=== PATIENT | female | born 1975 | race Caucasian/White ===

== ENCOUNTER 2016-07-01 10:01 | Emergency (ER) | payer OTHER ==
[~2016-07-01] VITALS: Ht 165.1 cm; Wt 58.1 kg
[2016-07-01] MEDS ORDERED: ONDANSETRON 4 MG TAB.RAPDIS ONE (10:22)
--- NOTE | 2016-07-01 10:25 | NUR ---
BIB SELF, CC: DYRURIA SINCE THIS MORNING WITH SOME NAUSEA, PATIENT IS ABLE TO AMBULATE TO BED, NO OTHER SIGNIFICANT CLINICAL PRESENTATION, PLACED ON MONITOR, URINE REQUESTED, MD AT BEDSIDE, WILL CONTINUE TO MONITOR CLOSELY.
[2016-07-01] MEDS ORDERED: ONDANSETRON 4 MG TAB.RAPDIS SL ONE (10:30)
--- NOTE | 2016-07-01 10:36 | NUR ---
URINE SAMPLE COLLECTED SENT TO LAB
[2016-07-01 11:08] LABS: APPEARANCE,URINE Turbid (CLEAR); BILIRUBIN,URINE Negative (NEGATIVE); BLOOD, URINE Large Ery/uL (NEGATIVE); COLOR,URINE Yellow (YELLOW); KETONES,URINE Negative (NEGATIVE); LEUKOCYTE ESTERASE ,URINE Moderate (NEGATIVE); NITRITE, URINE Negative (NEGATIVE); PH,URINE 5.5 (5.0-8.0); PROTEIN,URINE 30 mg/dl (NEGATIVE); UGLUCOSE Negative (NEGATIVE); UROBILINOGEN,URINE 0.2 EU/dL (0.2)
[2016-07-01 11:13] LABS: PREGNANCY TEST URINE QUAL NEGATIVE (NEGATIVE)
[2016-07-01] MEDS ORDERED: PHENAZOPYRIDINE HCL 200 MG TABLET ONE (11:14)
[2016-07-01] MEDS ORDERED: SULFAMETH/TRIMETH 800/160 MG 1 UDTAB TABLET PO ONE ×2 (11:15→11:30)
[2016-07-01 11:24] VITALS: BP 126/81
--- NOTE | 2016-07-01 11:25 | NUR ---
PT MEDICATED ORDERED
--- NOTE | 2016-07-01 11:25 | NUR ---
Patient discharged to home in stable condition. Written and verbal after care instructions given. Patient verbalizes understanding of instruction.
[2016-07-01] MEDS ORDERED: PHENAZOPYRIDINE HCL 200 MG TABLET PO ONE (11:30)
[2016-07-01 11:33] LABS: ADD URINE CULTURE YES; BACTERIA,URINE Many /HPF (None Seen); SQUAMOUS EPITHELIAL CELL,UR Rare /HPF (None Seen); WBC,URINE 21-50 /HPF (0-3)
== END 2016-07-01 11:27 | disposition home or self-care (01) ==
LOC: ER 10:03
DX: N30.00 Acute cystitis without hematuria (principal); Z88.6 Allergy status to analgesic agent
CPT/HCPCS: 81000-TC; 84703-TC; 87086-TC; 87186-TC; A4606; Q0162; Z7610

== ENCOUNTER 2016-07-13 18:54 | Emergency (ER) | payer OTHER ==
[~2016-07-13] VITALS: Ht 167.6 cm; Wt 59.0 kg
--- NOTE | 2016-07-13 19:02 | NUR ---
PT TO ER BED 09 C/O HEMATURIA AND DYSURIA X 2 WEEKS. HX OF RECURRENT UTI. GOWNED. ON MONITOR. STABLE VITALS. AWAITING MD OLIVARES.
--- NOTE | 2016-07-13 19:19 | NUR ---
CELINE KRISHNAN AT BEDSIDE FOR EVAL.
[2016-07-13 19:49] LABS: APPEARANCE,URINE Clear (CLEAR); BILIRUBIN,URINE SMALL (NEGATIVE); BLOOD, URINE Negative Ery/uL (NEGATIVE); COLOR,URINE Amber (YELLOW); KETONES,URINE Negative (NEGATIVE); LEUKOCYTE ESTERASE ,URINE Negative (NEGATIVE); NITRITE, URINE Positive (NEGATIVE); PROTEIN,URINE Trace mg/dl (NEGATIVE); UGLUCOSE 100 MG/DL mg/dL (NEGATIVE)
[2016-07-13] MEDS ORDERED: CEFTRIAXONE 1 G in IV D5W 50 ML IV ONE (20:00)
[2016-07-13] MEDS ORDERED: IV NS 0.9% 1,000 ML BAG IV ONE (20:00)
[2016-07-13] MEDS ORDERED: CEFTRIAXONE 1GM BAG (ER ONLY) 50 ML IV ONE (20:17)
[2016-07-13] MEDS ORDERED: ONDANSETRON HCL/PF 4 MG/2 ML VIAL ONE (20:17)
[2016-07-13] MEDS ORDERED: IV SET PRIMARY PUMP SET 1 EA INFUS.SET MC ONE (20:17)
[2016-07-13] MEDS ORDERED: IV SET PRIMARY 1 EA INFUS.SET MC ONE (20:17)
[2016-07-13] MEDS ORDERED: IV NS 0.9% 1,000 ML ONE (20:17)
[2016-07-13 20:20] LABS: BACTERIA,URINE Few /HPF (None Seen); MUCUS,URINE Many /LPF (None Seen); RBC,URINE 0-2 /HPF (0-2); SQUAMOUS EPITHELIAL CELL,UR Few /HPF (None Seen); WBC,URINE 0-2 /HPF (0-3)
[2016-07-13] MEDS ORDERED: MORPHINE SULFATE INJ 2 MG/ML DISP.SYRIN IV ONE (20:30)
[2016-07-13] MEDS ORDERED: ONDANSETRON HCL/PF 4 MG/2 ML VIAL IV ONE (20:30)
[2016-07-13] MEDS ORDERED: ACETAMINOPHEN ES 500 MG TABLET ONE (20:51)
[2016-07-13] MEDS ORDERED: ACETAMINOPHEN ES 500 MG TABLET PO ONE (21:00)
[2016-07-13 21:38] VITALS: BP 115/76
--- NOTE | 2016-07-13 21:38 | NUR ---
Patient discharged to home in stable condition. Written and verbal after care instructions given. Patient verbalizes understanding of instruction.IV removed. Catheter intact and site benign. Pressure and 4x4 applied to site. No bleeding noted.
== END 2016-07-13 21:39 | disposition home or self-care (01) ==
LOC: ER 18:58
DX: N30.01 Acute cystitis with hematuria (principal); Z88.6 Allergy status to analgesic agent
CPT/HCPCS: 81001; 87086; 96365; 96375; 99284; A4606; J0696; J2405; J7030; Z7610; 81000-TC

== ENCOUNTER 2016-08-04 20:34 | Emergency (ER) | payer OTHER ==
[~2016-08-04] VITALS: Ht 165.1 cm; Wt 56.7 kg
[2016-08-04 20:37] VITALS: BP 91/51
--- NOTE | 2016-08-04 20:45 | NUR ---
TO BED 4 AMBULATORY C/O URINARY FREQUENCY, PAIN AND BURNING UPON URINATION SINCE JUNE. PT WAS SEEN HER ON JULY 01 AND JULY 13 FOR THE SAME SYMPTOM. PT WAS GIVEN PRESCRIPTION OF ANTIBIOTIC BUT WITHOUT ANY RELIEF. ER FINAL TESTER TESS AT BEDSIDE TO EVAL PT WITH ORDERS RECEIVED. URINE SAMPLE COLLECTED AND SENT TO LAB.
[2016-08-04 20:58] LABS: APPEARANCE,URINE Clear (CLEAR); BILIRUBIN,URINE Negative (NEGATIVE); BLOOD, URINE Negative Ery/uL (NEGATIVE); COLOR,URINE Orange (YELLOW); KETONES,URINE Negative (NEGATIVE); LEUKOCYTE ESTERASE ,URINE Negative (NEGATIVE); NITRITE, URINE Positive (NEGATIVE); PROTEIN,URINE Negative (NEGATIVE); UGLUCOSE 100 MG/DL mg/dL (NEGATIVE); UROBILINOGEN,URINE 0.2 EU/dL (0.2)
[2016-08-04 21:06] LABS: BACTERIA,URINE Moderate /HPF (None Seen); RBC,URINE 0-2 /HPF (0-2); SQUAMOUS EPITHELIAL CELL,UR Moderate /HPF (None Seen); WBC,URINE 0-2 /HPF (0-3)
== END 2016-08-04 21:21 | disposition home or self-care (01) ==
LOC: ER 20:34
DX: N39.0 Urinary tract infection, site not specified (principal); Z88.6 Allergy status to analgesic agent
CPT/HCPCS: 81000-TC; 87086-TC; A4606; Z7610

== ENCOUNTER 2017-05-08 17:46 | Emergency (ER) | payer OTHER ==
[~2017-05-08] VITALS: Ht 165.1 cm; Wt 56.2 kg
--- NOTE | 2017-05-08 17:50 | NUR ---
BBRA 88 FROM HOME FOR SYNCOPAL EPISODE ON COUCH.HYPOTENSIVE PER RA. BS IN FIELD 56, AMP D50 GIVEN NAD NOTED, VSS, RESP EVEN AND UNLABORED, PT WAS PUT ON MONITOR AND HOSPITAL GOWN. WAITING FOR MD OLIVARES.
[2017-05-08] MEDS ORDERED: ONDANSETRON HCL/PF 4 MG/2 ML VIAL ONE (17:52)
[2017-05-08] MEDS ORDERED: MORPHINE SULFATE INJ 2 MG/ML DISP.SYRIN ONE (17:52)
[2017-05-08] MEDS ORDERED: IV NS 0.9% 1,000 ML BAG IV ONE ×2 (18:00→19:00)
[2017-05-08] MEDS ORDERED: MORPHINE SULFATE INJ 2 MG/ML DISP.SYRIN IV ONE (18:00)
[2017-05-08] MEDS ORDERED: ONDANSETRON HCL/PF 4 MG/2 ML VIAL IVP ONE (18:00)
[2017-05-08 18:11] LABS: BASOPHILS # (AUTO) 0.2 /CMM (0.0-0.2); BASOPHILS % (AUTO) 2.4 % (0.0-2.0); HEMATOCRIT 36 % (33-45); LYMPHOCYTES # (AUTO) 2.8 /CMM (0.8-4.8); MEAN CORPUSCULAR HGB CONC 34 g/dl (31.0-36.0); MEAN CORPUSCULAR VOLUME 83 fL (82-100); MONOCYTES # (AUTO) 0.3 /CMM (0.1-1.30); MONOCYTES % (AUTO) 4.8 % (2.0-12.0); NEUTROPHILS # (AUTO) 2.8 /CMM (1.8-8.9); NEUTROPHILS % (AUTO) 44.8 % (43.0-81.0); PLATELET COUNT (AUTO) 266 /CMM (150-450); RDW COEFFICIENT OF VARIATION 12.5 (11.5-15.0); RED BLOOD CELL COUNT(AUTO) 4.25 MIL/uL (4.0-5.2); WHITE BLOOD COUNT (AUTO) 6.4 K/uL (4.3-11.0)
--- NOTE | 2017-05-08 18:14 | NUR ---
URINE SENT TO LAB
--- NOTE | 2017-05-08 18:14 | NUR ---
PT TO CTSCAN
[2017-05-08 18:19] LABS: ALBUMIN 3.4 g/dL (3.4-5.0); BILIRUBIN,DIRECT 0.1 mg/dL (0.0-0.2); BILIRUBIN,TOTAL 0.3 mg/dL (0.2-1.0); CALCIUM, SERUM 8.3 mg/dL (8.5-10.1); CREATININE 0.8 mg/dL (0.6-1.3); POTASSIUM 3.2 mmol/L (3.5-5.1); TOTAL PROTEIN, SERUM 6.3 g/dL (6.4-8.2)
[2017-05-08 19:00] LABS: APPEARANCE,URINE Clear (CLEAR); BILIRUBIN,URINE Negative (NEGATIVE); BLOOD, URINE Negative Ery/uL (NEGATIVE); COLOR,URINE Orange (YELLOW); KETONES,URINE Negative (NEGATIVE); LEUKOCYTE ESTERASE ,URINE Negative (NEGATIVE); NITRITE, URINE Positive (NEGATIVE); PROTEIN,URINE 30 mg/dl (NEGATIVE); UGLUCOSE 500 MG/DL mg/dL (NEGATIVE)
[2017-05-08] MEDS ORDERED: POTASSIUM CHLORIDE 20 MEQ TAB.PRT.SR PO ONE ×2 (19:00→19:01)
[2017-05-08] MEDS ORDERED: CEFTRIAXONE 1GM BAG (ER ONLY) 50 ML IV ONE (20:05)
[2017-05-08 20:20] LABS: RBC,URINE 0-2 /HPF (0-2); WBC,URINE 0-2 /HPF (0-3)
[2017-05-08 20:23] LABS: BACTERIA,URINE Moderate /HPF (None Seen); MUCUS,URINE Few /LPF (None Seen); SQUAMOUS EPITHELIAL CELL,UR Moderate /HPF (None Seen)
[2017-05-08] MEDS ORDERED: CEFTRIAXONE 1 G in IV D5W 50 ML IV ONE (20:30)
[2017-05-08 20:55] VITALS: BP 121/83
--- NOTE | 2017-05-08 20:56 | NUR ---
Patient discharged to home in stable condition. Written and verbal after care instructions given. Patient verbalizes understanding of instruction.IV removed. Catheter intact and site benign. Pressure and 4x4 applied to site. No bleeding noted. Prescription given.
== END 2017-05-08 20:57 | disposition home or self-care (01) ==
LOC: ER 17:46
DX: N30.10 Interstitial cystitis (chronic) without hematuria (principal); E86.0 Dehydration; E87.6 Hypokalemia
CPT/HCPCS: 36415; 71045-TC; 80048-TC; 80076-TC; 81000-TC; 83690-TC; 84703-TC; 85025-TC; 87086-TC; A4606; J0696; J2270; J2405; J7030; J7060; Z7610

== ENCOUNTER 2017-05-17 00:25 | Emergency (ER) | payer OTHER ==
[~2017-05-17] VITALS: Ht 165.1 cm; Wt 56.7 kg
--- NOTE | 2017-05-17 00:45 | NUR ---
BB FRIEND FROM HOME C/O PAIN RIGHT FLANK/URETHRA PAIN 10/10 X2 DAYS. PT STATES SHE WAS DX WITH UTI RECENTLY AND WAS ACTIVELY TAKING ANTIBIOTICS TO TREAT HER UTI. PT STATES +N, -V/D. PT IS AAOX4.SKIN WNL. RESP EVEN AND UNLABORED. MILD S/S OF DISTRESS NOTED IN PT. PT GOWNED AND PLACED ON MONITOR. PT SAFETY AND COMFORT MEASURES IN PLACE. PT'S PARTNER BEDSIDE. CALL LIGHT PLACED WITHIN REACH. BEDSIDE FOR ELISE.
[2017-05-17] MEDS ORDERED: MORPHINE SULFATE INJ 2 MG/ML DISP.SYRIN IV ONE (01:00)
[2017-05-17] MEDS ORDERED: ONDANSETRON HCL/PF 4 MG/2 ML VIAL IVP ONE (01:00)
[2017-05-17] MEDS ORDERED: IV NS 0.9% 1,000 ML BAG IV ONE (01:00)
[2017-05-17] MEDS ORDERED: ONDANSETRON HCL/PF 4 MG/2 ML VIAL ONE (01:01)
[2017-05-17] MEDS ORDERED: MORPHINE SULFATE INJ 4 MG/ML DISP.SYRIN ONE (01:02)
[2017-05-17 01:04] LABS: BASOPHILS % (AUTO) 0.5 % (0.0-2.0); HEMATOCRIT 39 % (33-45); LYMPHOCYTES # (AUTO) 3.2 /CMM (0.8-4.8); LYMPHOCYTES % (AUTO) 33.1 % (20.0-44.0); MEAN CORPUSCULAR HGB CONC 33 g/dl (31.0-36.0); MEAN CORPUSCULAR VOLUME 85 fL (82-100); MONOCYTES # (AUTO) 0.5 /CMM (0.1-1.30); MONOCYTES % (AUTO) 5.4 % (2.0-12.0); NEUTROPHILS # (AUTO) 5.7 /CMM (1.8-8.9); PLATELET COUNT (AUTO) 288 /CMM (150-450); RDW COEFFICIENT OF VARIATION 13.2 (11.5-15.0); RED BLOOD CELL COUNT(AUTO) 4.61 MIL/uL (4.0-5.2); WHITE BLOOD COUNT (AUTO) 9.7 K/uL (4.3-11.0)
[2017-05-17 01:11] LABS: APPEARANCE,URINE CLEAR (CLEAR); BILIRUBIN,URINE NEGATIVE (NEGATIVE); BLOOD, URINE NEGATIVE Ery/uL (NEGATIVE); KETONES,URINE TRACE (NEGATIVE); LEUKOCYTE ESTERASE ,URINE NEGATIVE (NEGATIVE); NITRITE, URINE POSITIVE (NEGATIVE); PROTEIN,URINE NEGATIVE (NEGATIVE); UGLUCOSE NEGATIVE (NEGATIVE); UROBILINOGEN,URINE 0.2 EU/dL (0.2)
[2017-05-17 01:12] LABS: COLOR,URINE DARK YELLOW (YELLOW)
[2017-05-17 01:14] LABS: CALCIUM, SERUM 8.9 mg/dL (8.5-10.1); CREATININE 0.7 mg/dL (0.6-1.3); POTASSIUM 3.3 mmol/L (3.5-5.1)
[2017-05-17 01:17] LABS: BACTERIA,URINE Few /HPF (None Seen); RBC,URINE 0-2 /HPF (0-2); SQUAMOUS EPITHELIAL CELL,UR Moderate /HPF (None Seen); WBC,URINE 0-2 /HPF (0-3)
[2017-05-17 01:20] LABS: ALBUMIN 4.5 g/dL (3.4-5.0); BILIRUBIN,DIRECT 0.1 mg/dL (0.0-0.2); BILIRUBIN,TOTAL 0.4 mg/dL (0.2-1.0); TOTAL PROTEIN, SERUM 7.9 g/dL (6.4-8.2)
--- NOTE | 2017-05-17 02:15 | NUR ---
Patient is resting comfortably in bed with partner bedside. VSS. No S/S of distress noted in pt.
[2017-05-17 03:13] VITALS: BP 111/74
--- NOTE | 2017-05-17 03:13 | NUR ---
Patient discharged to home in stable condition. Written and verbal after care instructions along with RX given. Patient verbalizes understanding of instruction.IV removed. Catheter intact and site benign. Pressure and 4x4 applied to site. No bleeding noted. VSS upon discharge.
== END 2017-05-17 03:14 | disposition home or self-care (01) ==
LOC: ER 00:27
DX: N39.0 Urinary tract infection, site not specified (principal); K85.90 Acute pancreatitis without necrosis or infection, unspecified; Z88.6 Allergy status to analgesic agent; Z60.2 Problems related to living alone
CPT/HCPCS: 36415; 80048-TC; 80076-TC; 81000-TC; 83690-TC; 84703-TC; 85025-TC; 87086-TC; A4606; J2270; J2405; J7030; Z7610

== ENCOUNTER 2017-07-22 19:59 | Emergency (ER) | payer OTHER ==
[~2017-07-22] VITALS: Ht 177.8 cm; Wt 61.2 kg
--- NOTE | 2017-07-22 20:20 | NUR ---
to bed 8 c/o abdominal pain with n/v x4 hrs. pt states "I have a hx of pancreatitis and it feels like it". pt aaox4 no acute distress noted, resp even and unlabored. pending er md pederson.
[2017-07-22] MEDS ORDERED: PANTOPRAZOLE 40 MG VIAL ONE (20:44)
[2017-07-22] MEDS ORDERED: ONDANSETRON HCL/PF 4 MG/2 ML VIAL ONE ×2 (20:44→22:00)
[2017-07-22 20:48] LABS: BASOPHILS # (AUTO) 0.1 /CMM (0.0-0.2); BASOPHILS % (AUTO) 0.5 % (0.0-2.0); EOSINOPHILS % (AUTO) 0.6 % (0.0-6.0); HEMATOCRIT 39 % (33-45); HEMOGLOBIN 13.1 g/dL (11.5-14.8); LYMPHOCYTES # (AUTO) 2.1 /CMM (0.8-4.8); LYMPHOCYTES % (AUTO) 21.2 % (20.0-44.0); MEAN CORPUSCULAR HGB CONC 34 g/dl (31.0-36.0); MEAN CORPUSCULAR VOLUME 85 fL (82-100); MONOCYTES # (AUTO) 0.3 /CMM (0.1-1.30); MONOCYTES % (AUTO) 3.2 % (2.0-12.0); NEUTROPHILS # (AUTO) 7.5 /CMM (1.8-8.9); NEUTROPHILS % (AUTO) 74.5 % (43.0-81.0); PLATELET COUNT (AUTO) 299 /CMM (150-450); RDW COEFFICIENT OF VARIATION 12.7 (11.5-15.0); RED BLOOD CELL COUNT(AUTO) 4.63 MIL/uL (4.0-5.2); WHITE BLOOD COUNT (AUTO) 10.1 K/uL (4.3-11.0)
[2017-07-22] MEDS ORDERED: IV NS 0.9% 1,000 ML BAG IV ONE ×2 (21:00→22:00)
[2017-07-22] MEDS ORDERED: ONDANSETRON HCL/PF 4 MG/2 ML VIAL IVP ONE ×2 (21:00→22:00)
[2017-07-22] MEDS ORDERED: PANTOPRAZOLE 40 MG VIAL IV ONE (21:00)
[2017-07-22 21:01] LABS: ALBUMIN 3.9 g/dL (3.4-5.0); BILIRUBIN,DIRECT 0.1 mg/dL (0.0-0.2); BILIRUBIN,TOTAL 0.6 mg/dL (0.2-1.0); CALCIUM, SERUM 9.1 mg/dL (8.5-10.1); CREATININE 0.5 mg/dL (0.6-1.3); POTASSIUM 3.2 mmol/L (3.5-5.1); TOTAL PROTEIN, SERUM 7.3 g/dL (6.4-8.2)
[2017-07-22 21:03] LABS: INR 0.93 (0.85-1.15)
[2017-07-22 21:12] LABS: BILIRUBIN,URINE NEGATIVE (NEGATIVE); BLOOD, URINE NEGATIVE Ery/uL (NEGATIVE); COLOR,URINE YELLOW (YELLOW); KETONES,URINE NEGATIVE (NEGATIVE); LEUKOCYTE ESTERASE ,URINE NEGATIVE (NEGATIVE); NITRITE, URINE NEGATIVE (NEGATIVE); PH,URINE 8.5 (5.0-8.0); PROTEIN,URINE NEGATIVE (NEGATIVE); UGLUCOSE NEGATIVE (NEGATIVE); UROBILINOGEN,URINE 0.2 EU/dL (0.2)
[2017-07-22 21:13] LABS: APPEARANCE,URINE CLEAR (CLEAR)
--- NOTE | 2017-07-22 21:19 | NUR ---
pt transported to radiology for ct abd/pelvis.
[2017-07-22] MEDS ORDERED: MORPHINE SULFATE INJ 4 MG/ML DISP.SYRIN ONE (22:00)
[2017-07-22] MEDS ORDERED: MORPHINE SULFATE INJ 2 MG/ML DISP.SYRIN IV ONE (22:00)
--- NOTE | 2017-07-22 22:57 | NUR ---
IV removed. Catheter intact and site benign. Pressure and 4x4 applied to site. No bleeding noted. Patient discharged to home in stable condition. Written and verbal after care instructions given. Patient verbalizes understanding of instruction. ambulatory with a steady gait noted. pt family member at bedside to take pt home.
[2017-07-22 23:12] VITALS: BP 133/67
== END 2017-07-22 23:13 | disposition home or self-care (01) ==
LOC: ER 20:02
DX: K85.90 Acute pancreatitis without necrosis or infection, unspecified (principal); R11.2 Nausea with vomiting, unspecified; Z88.6 Allergy status to analgesic agent; Z60.2 Problems related to living alone; Z87.440 Personal history of urinary (tract) infections
CPT/HCPCS: 36415; 74176; 80048; 80076; 81001; 83690; 84703; 85025; 85730; 96361; 96374; 96375; 96376; 99285; A4606; C9113; J2270; J2405 ×2; J7030 ×2; Z7610; 81000-TC

== ENCOUNTER 2018-04-22 22:46 | Emergency (ER) | payer OTHER ==
[~2018-04-22] VITALS: Ht 165.1 cm; Wt 56.7 kg
--- NOTE | 2018-04-22 23:05 | NUR ---
CALLED TO TRIAGE, NOT IN WAITING ROOM
--- NOTE | 2018-04-22 23:18 | NUR ---
PT BIBSELF INTERMITTENT ABD PAIN X 3DAYS; +N/V/D. PT AOX4 WITH FRIEND AT BEDSIDE. PAIN DENIES PAIN AT THIS TIME. PT ON MONITOR IN BED 10. WILL CONTINUE TO MONITOR.
[2018-04-22 23:38] VITALS: BP 121/82
[2018-04-23] MEDS ORDERED: ONDANSETRON HCL/PF 4 MG/2 ML VIAL IVP ONE
[2018-04-23] MEDS ORDERED: HYDROCODONE/APAP 10/325MG 1 EA TABLET PO ONE
[2018-04-23] MEDS ORDERED: IV NS 0.9% 1,000 ML BAG IV ONE
[2018-04-23 00:05] LABS: APPEARANCE,URINE Clear (CLEAR); BILIRUBIN,URINE Negative (NEGATIVE); BLOOD, URINE Negative Ery/uL (NEGATIVE); COLOR,URINE Yellow (YELLOW); KETONES,URINE Negative (NEGATIVE); LEUKOCYTE ESTERASE ,URINE Negative (NEGATIVE); NITRITE, URINE Negative (NEGATIVE); PROTEIN,URINE Negative (NEGATIVE); UGLUCOSE Negative (NEGATIVE); UROBILINOGEN,URINE 0.2 EU/dL (0.2)
[2018-04-23] MEDS ORDERED: HYDROCODONE/APAP 10/325MG 1 EA TABLET ONE (00:13)
[2018-04-23] MEDS ORDERED: ONDANSETRON HCL/PF 4 MG/2 ML VIAL ONE (00:13)
[2018-04-23] MEDS ORDERED: FAMOTIDINE/PF INJ 20 MG/2 ML VIAL IV ONE ×2 (00:13)
[2018-04-23 00:17] LABS: BASOPHILS % (AUTO) 0.4 % (0.0-2.0); EOSINOPHILS % (AUTO) 1.5 % (0.0-6.0); HEMATOCRIT 37 % (33-45); HEMOGLOBIN 12.2 g/dL (11.5-14.8); LYMPHOCYTES # (AUTO) 2.6 /CMM (0.8-4.8); LYMPHOCYTES % (AUTO) 27.7 % (20.0-44.0); MEAN CORPUSCULAR HGB CONC 33 g/dl (31.0-36.0); MEAN CORPUSCULAR VOLUME 87 fL (82-100); MONOCYTES # (AUTO) 0.5 /CMM (0.1-1.30); MONOCYTES % (AUTO) 5.5 % (2.0-12.0); NEUTROPHILS # (AUTO) 6.1 /CMM (1.8-8.9); NEUTROPHILS % (AUTO) 64.9 % (43.0-81.0); PLATELET COUNT (AUTO) 279 /CMM (150-450); RED BLOOD CELL COUNT(AUTO) 4.24 MIL/uL (4.0-5.2); WHITE BLOOD COUNT (AUTO) 9.4 K/uL (4.3-11.0)
[2018-04-23 00:21] LABS: CALCIUM, SERUM 9.1 mg/dL (8.5-10.1); CREATININE 0.6 mg/dL (0.6-1.3); POTASSIUM 4.4 mmol/L (3.5-5.1)
[2018-04-23 00:27] LABS: ALBUMIN 3.9 g/dL (3.4-5.0); BILIRUBIN,TOTAL 0.1 mg/dL (0.2-1.0); TOTAL PROTEIN, SERUM 7.1 g/dL (6.4-8.2)
--- NOTE | 2018-04-23 01:16 | NUR ---
IV removed. Catheter intact and site benign. Pressure and 4x4 applied to site. No bleeding noted.Patient discharged to home in stable condition. Written and verbal after care instructions given. Patient verbalizes understanding of instruction. PT AMBULATORY WITH STEADY GAIT ACCOMPANIED BY FRIEND.
== END 2018-04-23 01:17 | disposition home or self-care (01) ==
LOC: ER 22:50
DX: K85.90 Acute pancreatitis without necrosis or infection, unspecified (principal); E86.0 Dehydration; G89.29 Other chronic pain; M54.30 Sciatica, unspecified side; Z88.6 Allergy status to analgesic agent; Z60.2 Problems related to living alone; Z87.440 Personal history of urinary (tract) infections
CPT/HCPCS: 36415; 76705-TC; 80048-TC; 80076-TC; 81000-TC; 82150-TC; 83690-TC; 85025-TC; 85730-TC; 87086-TC; J2405; J3490; J7030

== ENCOUNTER 2018-09-04 22:23 | Emergency (ER) | payer OTHER ==
[~2018-09-04] VITALS: Ht 165.1 cm; Wt 54.4 kg
--- NOTE | 2018-09-04 22:24 | NUR ---
PANCREATITIS FLARE UP SINCE 1830. DX WITH PANCREATITIS 1 YEAR AGO, HAS NOT HAD ANY ISSUES FOR THE LAST 6 MONTHS. STATES SHE ATE A SALAD TODAY BEFORE HAVING THE PAIN. PAIN IS STABBING AND CHANGES FROM 6/10 TO 10/10. HAS ASSOCIATED NAUSEA AND VOMITING X 3. PT MADE COMFORTABLE, ON MONITOR, AND READY FOR EVAL.
--- NOTE | 2018-09-04 22:39 | NUR ---
ACCOUNT MANAGEMENT SPECIALIST ANGELESII AT BEDSIDE FOR EVAL.
[2018-09-04] MEDS ORDERED: HYDROMORPHONE 1 MG/1 ML DISP.SYRIN ONE (22:41)
[2018-09-04] MEDS ORDERED: ONDANSETRON HCL/PF 4 MG/2 ML VIAL ONE (22:41)
--- NOTE | 2018-09-04 22:55 | NUR ---
PT UNABLE TO PROVIDE URINE AT THIS TIME.
[2018-09-04 22:58] LABS: BASOPHILS % (AUTO) 0.3 % (0.0-2.0); EOSINOPHILS % (AUTO) 1.2 % (0.0-6.0); HEMATOCRIT 39 % (33-45); HEMOGLOBIN 12.8 g/dL (11.5-14.8); LYMPHOCYTES # (AUTO) 2.1 /CMM (0.8-4.8); LYMPHOCYTES % (AUTO) 20.5 % (20.0-44.0); MEAN CORPUSCULAR HGB CONC 33 g/dl (31.0-36.0); MEAN CORPUSCULAR VOLUME 87 fL (82-100); MONOCYTES # (AUTO) 0.5 /CMM (0.1-1.30); MONOCYTES % (AUTO) 4.5 % (2.0-12.0); NEUTROPHILS # (AUTO) 7.5 /CMM (1.8-8.9); NEUTROPHILS % (AUTO) 73.5 % (43.0-81.0); PLATELET COUNT (AUTO) 262 /CMM (150-450); RED BLOOD CELL COUNT(AUTO) 4.44 MIL/uL (4.0-5.2); WHITE BLOOD COUNT (AUTO) 10.2 K/uL (4.3-11.0)
[2018-09-04] MEDS ORDERED: HYDROMORPHONE INJ 2 MG/ML DISP.SYRIN IV ONE (23:00)
[2018-09-04] MEDS ORDERED: IV NS 0.9% 1,000 ML BAG IV ONE (23:00)
[2018-09-04] MEDS ORDERED: ONDANSETRON HCL/PF 4 MG/2 ML VIAL IVP ONE (23:00)
--- NOTE | 2018-09-04 23:04 | NUR ---
PROVIDED SOCKS AND BLANKET FOR COMFORT
[2018-09-04 23:10] LABS: CALCIUM, SERUM 8.6 mg/dL (8.5-10.1); CREATININE 0.7 mg/dL (0.6-1.3); POTASSIUM 3.2 mmol/L (3.5-5.1)
[2018-09-04 23:19] LABS: ALBUMIN 3.9 g/dL (3.4-5.0); BILIRUBIN,DIRECT 0.1 mg/dL (0.0-0.2); BILIRUBIN,TOTAL 0.3 mg/dL (0.2-1.0); TOTAL PROTEIN, SERUM 7.2 g/dL (6.4-8.2)
[2018-09-05 00:08] LABS: APPEARANCE,URINE Clear (CLEAR); BILIRUBIN,URINE Negative (NEGATIVE); BLOOD, URINE Negative Ery/uL (NEGATIVE); COLOR,URINE Yellow (YELLOW); KETONES,URINE 40 (NEGATIVE); LEUKOCYTE ESTERASE ,URINE Negative (NEGATIVE); NITRITE, URINE Negative (NEGATIVE); PROTEIN,URINE Negative (NEGATIVE); UGLUCOSE Negative (NEGATIVE); UROBILINOGEN,URINE 0.2 EU/dL (0.2)
[2018-09-05 00:29] LABS: BACTERIA,URINE Few /HPF (None Seen); RBC,URINE 0-2 /HPF (0-2); SQUAMOUS EPITHELIAL CELL,UR Few /HPF (None Seen); WBC,URINE 0-2 /HPF (0-3)
[2018-09-05] MEDS ORDERED: POTASSIUM CHLORIDE 20 MEQ TAB.PRT.SR PO ONE ×2 (00:34)
--- NOTE | 2018-09-05 00:55 | NUR ---
PT OK TO DISCHARGE PER JERMAIN SECTION HOUSEKEEPER. IV removed. Catheter intact and site benign. Pressure and 4x4 applied to site. No bleeding noted.Patient discharged to home in stable condition. Written and verbal after care instructions given. Patient verbalizes understanding of instruction.Patient is awake and alert to self, day, and place. PT ambulatory with a steady gait
[2018-09-05 02:02] VITALS: BP 129/71
== END 2018-09-05 02:03 | disposition home or self-care (01) ==
LOC: ER 22:37
DX: R10.84 Generalized abdominal pain (principal); R10.10 Upper abdominal pain, unspecified; R11.2 Nausea with vomiting, unspecified; G89.29 Other chronic pain; Z87.440 Personal history of urinary (tract) infections; Z88.6 Allergy status to analgesic agent; Z60.2 Problems related to living alone
CPT/HCPCS: 36415; 80048; 80076; 81001; 83690; 84703; 85025; 85730; 96361 ×2; 96374; 96375; 99283; J1170; J2405; J7030; 81000-TC

== ENCOUNTER 2019-02-01 15:15 | Emergency (ER) | payer OTHER ==
[~2019-02-01] VITALS: Ht 165.1 cm; Wt 55.3 kg
--- NOTE | 2019-02-01 15:30 | NUR ---
CARI C/O EPIGASTRIC PAIN, +N/V, "FEELS LIKE PANCREATITIS", TO ER BED 3, HOOKED TO MONITOR, CHANGED TO HOSP GOWN, PROVIDED WW ARM BLANKET, AWAITING MD OLIVARES
--- NOTE | 2019-02-01 15:42 | NUR ---
DR ORTEGA AT BEDSIDE
[2019-02-01] MEDS ORDERED: PANTOPRAZOLE 40 MG VIAL ONE (15:58)
[2019-02-01] MEDS ORDERED: ONDANSETRON HCL/PF 4 MG/2 ML VIAL ONE (15:58)
[2019-02-01] MEDS ORDERED: IV NS 0.9% 1,000 ML BAG IV ONE ×2 (16:00→16:30)
[2019-02-01] MEDS ORDERED: ONDANSETRON HCL/PF 4 MG/2 ML VIAL IVP ONE (16:00)
[2019-02-01] MEDS ORDERED: PANTOPRAZOLE 40 MG VIAL IV ONE (16:00)
[2019-02-01 16:05] LABS: BASOPHILS % (AUTO) 0.1 % (0.0-2.0); EOSINOPHILS % (AUTO) 1.1 % (0.0-6.0); HEMATOCRIT 40 % (33-45); HEMOGLOBIN 12.9 g/dL (11.5-14.8); LYMPHOCYTES # (AUTO) 0.8 /CMM (0.8-4.8); LYMPHOCYTES % (AUTO) 5.7 % (20.0-44.0); MEAN CORPUSCULAR HGB CONC 32 g/dl (31.0-36.0); MEAN CORPUSCULAR VOLUME 86 fL (82-100); MONOCYTES # (AUTO) 0.7 /CMM (0.1-1.30); MONOCYTES % (AUTO) 4.5 % (2.0-12.0); NEUTROPHILS % (AUTO) 88.6 % (43.0-81.0); PLATELET COUNT (AUTO) 311 /CMM (150-450); RED BLOOD CELL COUNT(AUTO) 4.63 MIL/uL (4.0-5.2); WHITE BLOOD COUNT (AUTO) 14.7 K/uL (4.3-11.0)
[2019-02-01 16:16] LABS: CALCIUM, SERUM 8.1 mg/dL (8.5-10.1); CREATININE 0.5 mg/dL (0.6-1.3); POTASSIUM 3.8 mmol/L (3.5-5.1)
[2019-02-01 16:21] LABS: ALBUMIN 3.6 g/dL (3.4-5.0); BILIRUBIN,DIRECT 0.1 mg/dL (0.0-0.2); BILIRUBIN,TOTAL 0.4 mg/dL (0.2-1.0); TOTAL PROTEIN, SERUM 6.9 g/dL (6.4-8.2)
[2019-02-01 16:26] LABS: ALCOHOL, BLOOD < 3 mg/dL (0-0)
[2019-02-01] MEDS ORDERED: HYDROMORPHONE 1 MG/1 ML DISP.SYRIN ONE (16:26)
[2019-02-01] MEDS ORDERED: HYDROMORPHONE INJ 0.5 MG/0.5 ML SYRINGE IV ONE (16:30)
[2019-02-01 17:30] LABS: APPEARANCE,URINE CLEAR (CLEAR); BILIRUBIN,URINE NEGATIVE (NEGATIVE); BLOOD, URINE NEGATIVE Ery/uL (NEGATIVE); COLOR,URINE YELLOW (YELLOW); KETONES,URINE NEGATIVE (NEGATIVE); LEUKOCYTE ESTERASE ,URINE NEGATIVE (NEGATIVE); NITRITE, URINE NEGATIVE (NEGATIVE); PROTEIN,URINE NEGATIVE (NEGATIVE); UGLUCOSE NEGATIVE (NEGATIVE); UROBILINOGEN,URINE 0.2 EU/dL (0.2)
[2019-02-01 18:29] VITALS: BP 118/72
--- NOTE | 2019-02-01 18:29 | NUR ---
IV removed. Catheter intact and site benign. Pressure and 4x4 applied to site. No bleeding noted.Patient discharged to home in stable condition. Written and verbal after care instructions given. Patient verbalizes understanding of instruction.
[2019-02-02] MEDS ORDERED: OMEP40CA13 PO (07:43)
[2019-02-02] MEDS ORDERED: GABA-532 PO (07:43)
[2019-02-03] MEDS ORDERED: CIPR-262 PO (12:46)
[2019-02-03] MEDS ORDERED: CEFU500T66 PO (12:47)
== END 2019-02-01 18:30 | disposition home or self-care (01) ==
LOC: ER 15:15
DX: K20.9 Esophagitis, unspecified (principal); F12.10 Cannabis abuse, uncomplicated; G89.29 Other chronic pain; R11.2 Nausea with vomiting, unspecified; Z88.6 Allergy status to analgesic agent; Z60.2 Problems related to living alone
CPT/HCPCS: 36415; 74176; 80048; 80076; 80305; 80307; 81001; 83690; 84702; 85025; 96361; 96374; 96375; 99284; C9113; J1170; J2405; J7030 ×2; 81000-TC; G0480

== ENCOUNTER 2019-02-01 18:47 | Inpatient (IN) | payer OTHER ==
[~2019-02-01] VITALS: Ht 165.1 cm; Wt 58.1 kg
--- NOTE | 2019-02-01 19:14 | NUR ---
PT D/C EARLIER TODAY, CAME BACK COMPLANINGN OF NAUSEA AND VOMITING
--- NOTE | 2019-02-01 20:46 | NUR ---
BED 322-1
--- NOTE | 2019-02-01 21:22 | NUR ---
CALLED IN REPORT TO [place] ALEX
[2019-02-01 21:30] VITALS: BP 115/62
--- NOTE | 2019-02-01 21:30 | NUR ---
MS/RN ADMITTING NOTES: RECEIVED REPORT FROM KAYLEE ALEX FROM ER. PATIENT ARRIVED TO THE UNIT AT 2130 VIA GURNEY ACCOMPANIED BY ER STAFF. IN STABLE CONDITION. FULL CODE. SIGNIFICANT OTHER PRESENT AT BEDSIDE. A/OX4. VERBALLY RESPONSIVE AND ABLE TO MAKE NEEDS KNOWN. ORIENTED TO THE UNIT AND STAFF. ON ROOM AIR, NO SOB NOTED. NO S/S OF ACUTE DISTRESS. IV ACCESS LOCATED ON THE RIGHT AC #20G CLEAN, PATENT AND INTACT. NO COMPLAINS OF PAIN OR DISCOMFORT AT THIS TIME HOWEVER, SHE FEELS NAUSEATED. SKIN ASSESSMENT DONE AND SKIN IS INTACT. BELONGINGS LIST CHECKED BY BROWN GOMEZ. PATIENT IS ABLE TO AMBULATE BY HER SELF. INFORMED PT TO PRESS THE CALL LIGHT WHEN NEEDS ASSISTANCE. SAFETY MEASURES ARE IN PLACE. BED IN LOW, LOCKED POSITION WITH SR UP X2. ALL NEEDS MET AT THIS TIME. WILL CONTINUE TO MONITOR ACCORDINGLY.
[2019-02-01 21:50] VITALS: BP 114/66
[2019-02-01] MEDS ORDERED: ENOXAPARIN SODIUM 40 MG/0.4 ML DISP.SYRIN SQ ONE (22:00)
[2019-02-01] MEDS ORDERED: HYDROCODONE/APAP 5/325MG 1 EACH TABLET PO PRN (22:00)
[2019-02-01] MEDS ORDERED: ZOLPIDEM TARTRATE 5 MG TABLET PO PRN (22:00)
[2019-02-01] MEDS ORDERED: MORPHINE SULFATE INJ 2 MG/ML DISP.SYRIN IV PRN (22:00)
[2019-02-01] MEDS ORDERED: Z GUARD REMEDY 2 OZ OINT TP PRN (22:00)
[2019-02-01] MEDS ORDERED: CIPROFLOXACIN IV RTU 400 MG in PREMIX 1 EA IV ONE (22:00)
[2019-02-01] MEDS ORDERED: MAG HYDROX/AL HYDROX/SIMETH 30 ML UDC PO PRN (22:00)
[2019-02-01] MEDS ORDERED: ACETAMINOPHEN 325 MG TABLET PO PRN (22:00)
[2019-02-01] MEDS ORDERED: MAGNESIUM HYDROXIDE 30 ML UDC PO PRN (22:00)
[2019-02-01] MEDS ORDERED: METRONIDAZOLE 500MG/ NS 100ML 100 ML IV ONE (22:07)
[2019-02-01] MEDS: METRONIDAZOLE 500MG/ NS 100ML 500 MG in PREMIX 1 EA IV SCH (22:18)
[2019-02-01] MEDS ORDERED: CIPROFLOXACIN IV RTU 200 ML IV ONE (22:24)
[2019-02-01] MEDS: IV D5/0.45 NACL 1,000 ML IV PRN (22:27)
--- NOTE | 2019-02-01 22:30 | NUR ---
MS/RN NOTES: PATIENT SEEN BY DR. LAYNE. AWARE OF PLAN OF CARE. CURRENTLY PLACED ON NPO STATUS FOR NOW FOR OBSERVATION. PATIENT REQUESTS TO BE PLACED IN TELE MONITORING. DR. LAYNE AWARE. WILL CONTINUE MONITORING PT. ACCORDINGLY.
[2019-02-01] MEDS: ONDANSETRON HCL/PF 4 MG/2 ML VIAL IVP PRN (22:53)
--- NOTE | 2019-02-02 06:35 | NUR ---
MS/RN ADMITTING NOTES: PATIENT IS IN STABLE CONDITION AND RESTING. A/OX4. VERBALLY RESPONSIVE AND ABLE TO MAKE NEEDS KNOWN. ON ROOM AIR, NO SOB NOTED. NO S/S OF ACUTE DISTRESS. IV ACCESS ON THE RIGHT AC #20G CLEAN, PATENT AND INTACT WITH NS RUNNING AT 125ML/HR. NO COMPLAINS OF PAIN OR DISCOMFORT AT THIS TIME. ABLE TO AMBULATE BY HER SELF. KEPT NPO THROUGH THE NIGHT PER VENIGALLA'S ORDER. SAFETY MEASURES KEPT IN PLACE. BED IN LOW, LOCKED POSITION WITH SR UP X2. ALL NEEDS MET AT THIS TIME. WILL ENDORSE TO DAY SHIFT FOR NIA.
[2019-02-02] MEDS ORDERED: METRONIDAZOLE 500MG/ NS 100ML 100 ML IV ONE (06:47)
[2019-02-02] MEDS: METRONIDAZOLE 500MG/ NS 100ML 500 MG in PREMIX 1 EA IV SCH ×3 (06:47→21:57)
[2019-02-02 07:20] LABS: BASOPHILS % (AUTO) 0.1 % (0.0-2.0); EOSINOPHILS % (AUTO) 0.3 % (0.0-6.0); HEMATOCRIT 36 % (33-45); HEMOGLOBIN 11.7 g/dL (11.5-14.8); LYMPHOCYTES # (AUTO) 0.7 /CMM (0.8-4.8); LYMPHOCYTES % (AUTO) 8.9 % (20.0-44.0); MEAN CORPUSCULAR HGB CONC 32 g/dl (31.0-36.0); MEAN CORPUSCULAR VOLUME 86 fL (82-100); MONOCYTES # (AUTO) 0.4 /CMM (0.1-1.30); MONOCYTES % (AUTO) 4.6 % (2.0-12.0); NEUTROPHILS # (AUTO) 6.9 /CMM (1.8-8.9); NEUTROPHILS % (AUTO) 86.1 % (43.0-81.0); PLATELET COUNT (AUTO) 289 /CMM (150-450); RED BLOOD CELL COUNT(AUTO) 4.22 MIL/uL (4.0-5.2)
[2019-02-02 07:32] LABS: CALCIUM, SERUM 7.8 mg/dL (8.5-10.1); CREATININE 0.5 mg/dL (0.6-1.3); MAGNESIUM 1.9 mg/dL (1.8-2.4); PHOSPHORUS 2.5 mg/dL (2.5-4.9); POTASSIUM 3.4 mmol/L (3.5-5.1)
[2019-02-02] MEDS ORDERED: GABA-532 PO (07:43)
[2019-02-02] MEDS ORDERED: OMEP40CA13 PO (07:43)
[2019-02-02 08:00] VITALS: BP 98/52
[2019-02-02] MEDS: CIPROFLOXACIN IV RTU 400 MG in PREMIX 1 EA IV SCH ×2 (09:19→20:36)
[2019-02-02] MEDS: IV D5/0.45 NACL 1,000 ML IV PRN (10:21)
[2019-02-02 16:00] VITALS: BP 94/53
--- NOTE | 2019-02-02 19:02 | NUR ---
MS RN NOTES PATIENT IN BED A/O X 4 AWAKE. ALL NEEDS ATTENDED. PER CREDIT RISK ASSOCIATE [employer] CLEAR LIQUID DIET . PATIENT TOLERATED WELL. BED AT THE LOWEST POSITION LOCKED. CALL LIGHT WITHIN REACH. ENDORSED TO PHYSICAL THERAPY AIDES TEACHER NURSE FOR NIA.
--- NOTE | 2019-02-02 19:10 | NUR ---
MS/RN OPEN NOTES: RECEIVED PATIENT AWAKE IN BED. FRIEND AT BEDSIDE. IN STABLE CONDITION. A/OX4. VERBALLY RESPONSIVE AND ABLE TO MAKE NEEDS KNOWN. ON ROOM AIR, NO SOB NOTED. NO S/S OF ACUTE DISTRESS. IV ACCESS ON THE RIGHT AC #20G CLEAN, PATENT AND INTACT WITH NS RUNNING AT 125ML/HR. NO COMPLAINS OF PAIN OR DISCOMFORT AT THIS TIME. ABLE TO AMBULATE BY HER SELF. SAFETY MEASURES IN PLACE. BED IN LOW, LOCKED POSITION WITH SR UP X2. ALL NEEDS MET AT THIS TIME. WILL MONITOR PT ACCORDINGLY.
[2019-02-02 20:00] VITALS: BP 124/56
[2019-02-02] MEDS ORDERED: ENOXAPARIN SODIUM 40 MG/0.4 ML DISP.SYRIN SQ SCH (21:00)
[2019-02-02] MEDS: PANTOPRAZOLE 40 MG TABLET.DR PO SCH (21:33)
[2019-02-02 22:00] VITALS: BP 113/69
[2019-02-02] MEDS: ONDANSETRON HCL/PF 4 MG/2 ML VIAL IVP PRN (22:07)
[2019-02-03] MEDS: IV D5/0.45 NACL 1,000 ML IV PRN (01:50)
[2019-02-03] MEDS: METRONIDAZOLE 500MG/ NS 100ML 500 MG in PREMIX 1 EA IV SCH (05:10)
--- NOTE | 2019-02-03 06:23 | NUR ---
MS/RN CLOSING NOTES: PATIENT IN BED, STABLE AND RESTING. A/OX4. NO SIGNIFICANT CHANGES IN CONDITION. ON ROOM AIR, NO SOB NOTED. NO S/S OF ACUTE DISTRESS. IV ACCESS ON THE RIGHT AC #20G CLEAN, PATENT AND INTACT WITH NS RUNNING AT 125ML/HR. NO COMPLAINS OF PAIN OR DISCOMFORT AT THIS TIME. AMBULATORY. ON CLEAR LIQUIDS DIET. SAFETY MEASURES KEPT IN PLACE. BED IN LOW, LOCKED POSITION WITH SR UP X2. KEPT PT WARM AND COMFORTABLE AT ALL TIMES. ALL NEEDS MET AT THIS TIME. WILL ENDORSE TO DAY SHIFT FOR NIA.
[2019-02-03] MEDS: PANTOPRAZOLE 40 MG TABLET.DR PO SCH (07:44)
[2019-02-03 08:00] VITALS: BP 121/82
--- NOTE | 2019-02-03 08:58 | NUR ---
MS/RN RECIEVED PT AWAKE AND ORIENTED, PT IS CONVERSANT, C/O OF HEADACHE, TYLENOL P.O WAS ADMINISTERED,WILL CONTINUE TO MONITOR, RECIEVED REPORT TO ARRANGING FUNERAL DIRECTOR.
[2019-02-03] MEDS: CIPROFLOXACIN IV RTU 400 MG in PREMIX 1 EA IV SCH (10:04)
[2019-02-03] MEDS: METRONIDAZOLE 500 MG TABLET PO SCH ×2 (11:42→14:29)
[2019-02-03] MEDS ORDERED: CIPR-262 PO (12:46)
[2019-02-03] MEDS ORDERED: CEFU500T66 PO (12:47)
--- NOTE | 2019-02-03 15:25 | NUR ---
MS/RN PATIENT IS ALERT AND ORIENTED X4. IN ROOM AIR AND SATURATION IS 99% . DENIES PAIN. THE PATIENT IN NO APPARENT DISTRESS. PATIENT WAS GIVEN A DISCHARGED INSTRUCTIONS AND SHE VERBALIZED UNDERSTANDING. PATIENT WAS DISCHARGED WITH STABLE V/S, AT 1505, ACCOMPANIED BY HER PARTNER ZAIRA.
== END 2019-02-03 15:00 | disposition home or self-care (01) | DRG 241 ==
LOC: ER 18:48 → MED 20:47
PROVIDERS: ADMIT Hospitalist; ATTEND Nurse Practitioner Acute Care
DX: K29.80 Duodenitis without bleeding (principal); K85.90 Acute pancreatitis without necrosis or infection, unspecified; F12.90 Cannabis use, unspecified, uncomplicated; K29.00 Acute gastritis without bleeding; K29.50 Unspecified chronic gastritis without bleeding; K20.9 Esophagitis, unspecified; K86.1 Other chronic pancreatitis; Z87.440 Personal history of urinary (tract) infections; G89.29 Other chronic pain; F41.9 Anxiety disorder, unspecified; A09 Infectious gastroenteritis and colitis, unspecified
CPT/HCPCS: 36415; 80048-TC; 80061-TC; 83690-TC; 83735-TC; 84100-TC; 84702-TC; 85025-TC; 87040-TC; 87081-TC; A4216; G0378; J0744; J1650; J2405; J3490; J7042

== ENCOUNTER 2019-03-03 12:02 | Emergency (ER) | payer OTHER ==
[~2019-03-03] VITALS: Ht 165.1 cm; Wt 56.7 kg
[~2019-03-03 12:02] MED LIST: CEFU500T66 PO; GABA-532 PO; OMEP40CA13 PO
[2019-03-03] MEDS ORDERED: ONDANSETRON HCL/PF 4 MG/2 ML VIAL ONE (12:53)
[2019-03-03] MEDS ORDERED: ONDANSETRON HCL/PF 4 MG/2 ML VIAL IVP ONE (13:00)
[2019-03-03] MEDS ORDERED: IV NS 0.9% 1,000 ML BAG IV ONE (13:00)
--- NOTE | 2019-03-03 13:20 | NUR ---
"I think I have a urine infection - discomfort/pressure on lower abdomen" Patient a/ox4, breathing even and unlabored, no sob noted, changed into gown. Kept comfortable.
[2019-03-03 13:29] LABS: APPEARANCE,URINE Clear (CLEAR); BILIRUBIN,URINE Negative (NEGATIVE); BLOOD, URINE Negative Ery/uL (NEGATIVE); COLOR,URINE Yellow (YELLOW); KETONES,URINE Negative (NEGATIVE); LEUKOCYTE ESTERASE ,URINE Negative (NEGATIVE); NITRITE, URINE Negative (NEGATIVE); PROTEIN,URINE Negative (NEGATIVE); UGLUCOSE Negative (NEGATIVE); UROBILINOGEN,URINE 0.2 EU/dL (0.2)
[2019-03-03 13:38] LABS: BASOPHILS % (AUTO) 0.3 % (0.0-2.0); EOSINOPHILS % (AUTO) 1.5 % (0.0-6.0); HEMATOCRIT 39 % (33-45); HEMOGLOBIN 12.4 g/dL (11.5-14.8); LYMPHOCYTES # (AUTO) 1.9 /CMM (0.8-4.8); LYMPHOCYTES % (AUTO) 17.4 % (20.0-44.0); MEAN CORPUSCULAR HGB CONC 32 g/dl (31.0-36.0); MEAN CORPUSCULAR VOLUME 89 fL (82-100); MONOCYTES # (AUTO) 0.4 /CMM (0.1-1.30); MONOCYTES % (AUTO) 3.8 % (2.0-12.0); NEUTROPHILS # (AUTO) 8.4 /CMM (1.8-8.9); PLATELET COUNT (AUTO) 243 /CMM (150-450); RED BLOOD CELL COUNT(AUTO) 4.43 MIL/uL (4.0-5.2)
[2019-03-03 13:47] LABS: CALCIUM, SERUM 8.3 mg/dL (8.5-10.1); CREATININE 0.4 mg/dL (0.6-1.3)
[2019-03-03 13:53] LABS: ALBUMIN 3.6 g/dL (3.4-5.0); BILIRUBIN,DIRECT 0.1 mg/dL (0.0-0.2); BILIRUBIN,TOTAL 0.2 mg/dL (0.2-1.0); TOTAL PROTEIN, SERUM 6.9 g/dL (6.4-8.2)
--- NOTE | 2019-03-03 14:34 | NUR ---
Patient resting, denies pain at this time. Will continue to monitor.
[2019-03-03 15:15] VITALS: BP 110/60
== END 2019-03-03 15:19 | disposition home or self-care (01) ==
LOC: ER 12:02
DX: N30.10 Interstitial cystitis (chronic) without hematuria (principal); R11.10 Vomiting, unspecified; F12.10 Cannabis abuse, uncomplicated; G89.29 Other chronic pain; M54.9 Dorsalgia, unspecified; Z60.2 Problems related to living alone; Z91.018 Allergy to other foods; Z88.6 Allergy status to analgesic agent; Z79.899 Other long term (current) drug therapy
CPT/HCPCS: 36415; 80048; 80076; 81001; 83690; 84703; 85025; 96361; 96374; 99283; J2405; J7030; 81000-TC

== ENCOUNTER 2019-04-15 17:59 | Emergency (ER) | payer SELFPAY ==
[~2019-04-15] VITALS: Ht 165.1 cm; Wt 57.6 kg
--- NOTE | 2019-04-15 18:00 | NUR ---
PT BIB SELF C/O COUGH FOR 5 DAYS, PT IS AAOX4, NOT IN RESPIRATORY DISTRESS , V/S STABLE, KEPT RESTED AND COMFORTABLE, WILL CONTINUE TO MONITOR.
--- NOTE | 2019-04-15 18:21 | NUR ---
SEEN AND EXAMINED BY ROSE CHUA
[2019-04-15] MEDS ORDERED: ALBUTEROL FS 2.5 MG/3 ML VIAL.NEB ONE (18:23)
[2019-04-15] MEDS ORDERED: IPRATROPIUM NEB FS 0.5 MG/2.5 ML AMPUL.NEB ONE (18:23)
--- NOTE | 2019-04-15 18:25 | NUR ---
RT AT BEDSIDE FOR BREATHING TREATMENT.
[2019-04-15] MEDS ORDERED: ALBUTEROL FS 2.5 MG/3 ML VIAL.NEB NEB ONE (18:30)
[2019-04-15] MEDS ORDERED: predniSONE 20 MG TABLET PO ONE (18:30)
[2019-04-15] MEDS ORDERED: IPRATROPIUM NEB FS 0.5 MG/2.5 ML AMPUL.NEB NEB ONE (18:30)
[2019-04-15] MEDS ORDERED: predniSONE 20 MG TABLET ONE (18:34)
--- NOTE | 2019-04-15 19:07 | NUR ---
REPORT GIVEN TO ISAI COSBY FOR NIA.
--- NOTE | 2019-04-15 19:13 | NUR ---
PT RECEIBVED IN BED. AAOX4. JUST FINISHED BREATHING TX. NO RESP DISTRESS NOTED. BREATHING EVEN AND UNLABORED
--- NOTE | 2019-04-15 20:45 | NUR ---
Patient discharged to home in stable condition. Written and verbal after care instructions given. Patient verbalizes understanding of instruction. Pt ambulatory with a steady gait
[2019-04-15 21:28] VITALS: BP 117/85
== END 2019-04-15 20:45 | disposition home or self-care (01) ==
LOC: ER 18:02
DX: J06.9 Acute upper respiratory infection, unspecified (principal); R06.2 Wheezing; M54.9 Dorsalgia, unspecified; G89.29 Other chronic pain; Z88.6 Allergy status to analgesic agent; Z91.018 Allergy to other foods; Z60.2 Problems related to living alone; Z79.899 Other long term (current) drug therapy
CPT/HCPCS: 71045; 94644; 99285; J7512

== ENCOUNTER 2019-09-28 22:52 | Emergency (ER) | payer OTHER ==
[~2019-09-28] VITALS: Ht 165.1 cm; Wt 54.4 kg
[2019-09-28 22:55] VITALS: BP 112/83
== END 2019-09-29 00:58 | disposition home or self-care (01) ==
LOC: ER 22:56
DX: H66.92 Otitis media, unspecified, left ear (principal); R21 Rash and other nonspecific skin eruption; G89.29 Other chronic pain; M54.9 Dorsalgia, unspecified; Z91.018 Allergy to other foods; Z88.6 Allergy status to analgesic agent; Z60.2 Problems related to living alone; Z79.899 Other long term (current) drug therapy

== ENCOUNTER 2020-05-26 11:12 | Emergency (ER) | payer OTHER ==
[~2020-05-26] VITALS: Ht 165.1 cm; Wt 56.7 kg
[2020-05-26] MEDS ORDERED: IV NS 0.9% 1,000 ML BAG IV ONE (11:30)
[2020-05-26] MEDS ORDERED: ONDANSETRON HCL/PF 4 MG/2 ML VIAL IVP ONE (11:30)
[2020-05-26] MEDS ORDERED: ONDANSETRON HCL/PF 4 MG/2 ML VIAL ONE (11:34)
[2020-05-26 11:39] LABS: BILIRUBIN,URINE Negative (NEGATIVE); COLOR,URINE YELLOW (YELLOW); LEUKOCYTE ESTERASE ,URINE Negative (NEGATIVE); NITRITE, URINE Positive (NEGATIVE); PROTEIN,URINE Negative (NEGATIVE); UGLUCOSE Negative (NEGATIVE); UROBILINOGEN,URINE 0.2 EU/dL (0.2)
[2020-05-26 11:40] LABS: BACTERIA,URINE 1+ /HPF (None Seen); RBC,URINE 0-2 /HPF (0-2); SQUAMOUS EPITHELIAL CELL,UR Few /HPF (None Seen)
[2020-05-26 11:43] LABS: BASOPHILS # (AUTO) 0.1 /CMM (0.0-0.2); BASOPHILS % (AUTO) 0.7 % (0.0-2.0); EOSINOPHILS % (AUTO) 3.5 % (0.0-6.0); HEMATOCRIT 39 % (33-45); HEMOGLOBIN 12.7 g/dL (11.5-14.8); LYMPHOCYTES # (AUTO) 2.4 /CMM (0.8-4.8); LYMPHOCYTES % (AUTO) 30.7 % (20.0-44.0); MEAN CORPUSCULAR HGB CONC 33 g/dl (31.0-36.0); MEAN CORPUSCULAR VOLUME 87 fL (82-100); MONOCYTES # (AUTO) 0.6 /CMM (0.1-1.30); MONOCYTES % (AUTO) 7.2 % (2.0-12.0); NEUTROPHILS # (AUTO) 4.5 /CMM (1.8-8.9); NEUTROPHILS % (AUTO) 57.9 % (43.0-81.0); PLATELET COUNT (AUTO) 281 /CMM (150-450); RED BLOOD CELL COUNT(AUTO) 4.52 MIL/uL (4.0-5.2); WHITE BLOOD COUNT (AUTO) 7.7 K/uL (4.3-11.0)
--- NOTE | 2020-05-26 11:48 | NUR ---
BIBS FROM HOME TO ER BED 7. AAOX4. NOT IN RESP DISTRESS. AMBULATORY. CAME IN FOR BLADDER PAIN AND LOWER BACK PAIN X 1 WEEK. PT ALSO REPORTS THAT SHE HAVE BURNING SENSATION WHEN URINATING. MD WAS AT THE BEDSIDE FOR EVAL. ORDERS RECEIVED, NOTED AND CARRIED OUT.
[2020-05-26 12:02] LABS: ALBUMIN 3.8 g/dL (3.4-5.0); BILIRUBIN,DIRECT 0.1 mg/dL (0.0-0.2); BILIRUBIN,TOTAL 0.3 mg/dL (0.2-1.0); CALCIUM, SERUM 8.6 mg/dL (8.5-10.1); CREATININE 0.7 mg/dL (0.6-1.3); POTASSIUM 3.6 mmol/L (3.5-5.1)
[2020-05-26] MEDS ORDERED: ONDA4TAB5 PO (12:38)
[2020-05-26] MEDS ORDERED: CEPH500C2 PO (12:38)
[2020-05-26] MEDS ORDERED: PHENAZOPYRIDINE HCL 200 MG TABLET PO ONE (13:00)
[2020-05-26] MEDS ORDERED: CEFTRIAXONE 1 G in IV D5W 50 ML IV ONE (13:00)
[2020-05-26] MEDS ORDERED: PHEN-704 PO (13:01)
[2020-05-26] MEDS ORDERED: PHENAZOPYRIDINE HCL 200 MG TABLET ONE (13:02)
--- NOTE | 2020-05-26 13:21 | NUR ---
Patient discharged to home in stable condition. Written and verbal after care instructions given. Patient verbalizes understanding of instruction.IV removed. Catheter intact and site benign. Pressure and 4x4 applied to site. No bleeding noted. Pt ambulatory with a steady gait
[2020-05-26 13:24] VITALS: BP 99/61
== END 2020-05-26 13:25 | disposition home or self-care (01) ==
LOC: ER 11:19
DX: N30.00 Acute cystitis without hematuria (principal); R74.8 Abnormal levels of other serum enzymes; R10.30 Lower abdominal pain, unspecified; R11.2 Nausea with vomiting, unspecified; G89.29 Other chronic pain; M54.9 Dorsalgia, unspecified; Z88.6 Allergy status to analgesic agent; Z91.018 Allergy to other foods; Z88.8 Allergy status to other drugs, medicaments and biological substances; Z60.2 Problems related to living alone; Z79.899 Other long term (current) drug therapy
CPT/HCPCS: 36415; 71045; 80048; 80076; 81001; 83690; 84703; 85025; 87086; 93005; 96361; 96365; 96375; 99285; J0696; J2405; J7030; J7060

== ENCOUNTER 2020-06-28 17:10 | Emergency (ER) | payer OTHER ==
[~2020-06-28] VITALS: Ht 165.1 cm; Wt 55.3 kg
[~2020-06-28 17:10] MED LIST changes: +CEPH500C2 PO; +ONDA4TAB5 PO; +PHEN-704 PO
--- NOTE | 2020-06-28 17:25 | NUR ---
LOWER ABD PAIN RAD TO BACK " IT'S PANCREATITIS " + N/V -DIARRHEA. PT AAOX4, VSS. RR EVEN & UNLABORED. DENIES CP, SOB, DIZZINESS AT THIS TIME. PT SEEN & EVAL'D BY BELINDA MAYBERRY. WILL CONT TO MONITOR.
[2020-06-28] MEDS ORDERED: MORPHINE SULFATE INJ 4 MG/ML DISP.SYRIN ONE (17:27)
[2020-06-28] MEDS ORDERED: ONDANSETRON HCL/PF 4 MG/2 ML VIAL ONE (17:27)
[2020-06-28] MEDS ORDERED: ONDANSETRON HCL/PF 4 MG/2 ML VIAL IVP ONE (17:30)
[2020-06-28] MEDS ORDERED: MORPHINE SULFATE INJ 2 MG/ML DISP.SYRIN IV ONE (17:30)
[2020-06-28] MEDS ORDERED: IV NS 0.9% 1,000 ML BAG IV ONE (17:30)
[2020-06-28 17:43] LABS: BASOPHILS # (AUTO) 0.1 /CMM (0.0-0.2); BASOPHILS % (AUTO) 0.7 % (0.0-2.0); HEMATOCRIT 41 % (33-45); HEMOGLOBIN 13.4 g/dL (11.5-14.8); LYMPHOCYTES # (AUTO) 2.2 /CMM (0.8-4.8); LYMPHOCYTES % (AUTO) 27.5 % (20.0-44.0); MEAN CORPUSCULAR HGB CONC 33 g/dl (31.0-36.0); MEAN CORPUSCULAR VOLUME 86 fL (82-100); MONOCYTES # (AUTO) 0.4 /CMM (0.1-1.30); MONOCYTES % (AUTO) 5.4 % (2.0-12.0); NEUTROPHILS # (AUTO) 5.2 /CMM (1.8-8.9); NEUTROPHILS % (AUTO) 64.4 % (43.0-81.0); PLATELET COUNT (AUTO) 326 /CMM (150-450); RED BLOOD CELL COUNT(AUTO) 4.78 MIL/uL (4.0-5.2); WHITE BLOOD COUNT (AUTO) 8.1 K/uL (4.3-11.0)
--- NOTE | 2020-06-28 17:49 | NUR ---
MEDICATED ORDERED, PT KERRI WELL.
[2020-06-28 17:51] LABS: BILIRUBIN,URINE Negative (NEGATIVE); COLOR,URINE YELLOW (YELLOW); LEUKOCYTE ESTERASE ,URINE Negative (NEGATIVE); NITRITE, URINE Negative (NEGATIVE); PH,URINE 5.5 (5.0-8.0); PROTEIN,URINE Negative (NEGATIVE); UGLUCOSE Negative (NEGATIVE); UROBILINOGEN,URINE 0.2 EU/dL (0.2)
[2020-06-28 17:53] LABS: CALCIUM, SERUM 9.1 mg/dL (8.5-10.1); CREATININE 0.7 mg/dL (0.6-1.3); POTASSIUM 3.8 mmol/L (3.5-5.1)
[2020-06-28 17:55] LABS: BACTERIA,URINE Rare /HPF (None Seen); RBC,URINE NONE SEEN /HPF (0-2); SQUAMOUS EPITHELIAL CELL,UR Few /HPF (None Seen); WBC,URINE NONE SEEN /HPF (0-3)
[2020-06-28 17:59] LABS: ALBUMIN 4.4 g/dL (3.4-5.0); BILIRUBIN,DIRECT 0.1 mg/dL (0.0-0.2); BILIRUBIN,TOTAL 0.5 mg/dL (0.2-1.0); TOTAL PROTEIN, SERUM 8.3 g/dL (6.4-8.2)
[2020-06-28] MEDS ORDERED: IV NS 0.9% 1,000 ML IV ONE (18:30)
[2020-06-28] MEDS ORDERED: HYDR-4303 PO (19:27)
[2020-06-28] MEDS ORDERED: HYDR-4275 PO (19:30)
--- NOTE | 2020-06-28 20:02 | NUR ---
PT CLEARED FOR DISCHARGE PER DR. SCHULTE, PT IV REMOVED, IV CATHETER INTACT. PRESSURE GAUZE APPLIED. NO ACTIVE BLEEDING NOTED. PT RECEIVED DISCHARGE INSTRUCTIONS. PT VERBALIZED UNDERSTANDING. PT AMBULATORY WITH STEADY GAIT.
[2020-06-28 20:03] VITALS: BP 128/89
== END 2020-06-28 20:03 | disposition home or self-care (01) ==
LOC: ER 17:10
DX: R10.12 Left upper quadrant pain (principal); R11.2 Nausea with vomiting, unspecified; G89.29 Other chronic pain; Z91.018 Allergy to other foods; Z88.8 Allergy status to other drugs, medicaments and biological substances; Z88.6 Allergy status to analgesic agent; Z60.2 Problems related to living alone; Z79.899 Other long term (current) drug therapy
CPT/HCPCS: 36415; 80048; 80076; 81001; 83605; 83690; 84703; 85025; 85730; 87040 ×2; 96361; 96374; 96375; 99284; J2270; J2405; J7030 ×2

== ENCOUNTER 2020-12-20 20:37 | Emergency (ER) | payer OTHER ==
[~2020-12-20] VITALS: Ht 165.1 cm; Wt 51.7 kg
[~2020-12-20 20:37] MED LIST changes: +HYDR-4275 PO; -OMEP40CA13 PO; +OMEP40CA21 PO
--- NOTE | 2020-12-20 21:09 | NUR ---
PT AAOX4. AMBULATORY WITH STEADY GAIT. BIBS FOR C/O EPIGASTRIC PAIN SINCE YESTERDAY. + NAUSEA, HX OF PANCREATITIS. PLACED IN BED 11 ON MONITOR AND PULSE OX.
[2020-12-20] MEDS ORDERED: ONDANSETRON HCL/PF 4 MG/2 ML VIAL ONE (21:18)
[2020-12-20] MEDS ORDERED: IV NS 0.9% 1,000 ML BAG IV ONE (21:30)
[2020-12-20] MEDS ORDERED: ONDANSETRON HCL/PF - ER 4 MG/2 ML VIAL IV ONE (21:30)
--- NOTE | 2020-12-20 21:33 | NUR ---
US AT BEDSIDE
[2020-12-20 21:59] LABS: BASOPHILS % (AUTO) 0.4 % (0.0-2.0); EOSINOPHILS % (AUTO) 2.9 % (0.0-6.0); HEMATOCRIT 37 % (33-45); LYMPHOCYTES # (AUTO) 2.2 K/uL (0.8-4.8); LYMPHOCYTES % (AUTO) 33.1 % (20.0-44.0); MEAN CORPUSCULAR HGB CONC 32 g/dl (31.0-36.0); MEAN CORPUSCULAR VOLUME 87 fL (82-100); MONOCYTES # (AUTO) 0.4 K/uL (0.1-1.30); MONOCYTES % (AUTO) 5.6 % (2.0-12.0); NEUTROPHILS # (AUTO) 3.8 K/uL (1.8-8.9); PLATELET COUNT (AUTO) 269 K/uL (150-450); RED BLOOD CELL COUNT(AUTO) 4.29 MIL/uL (4.0-5.2); WHITE BLOOD COUNT (AUTO) 6.5 K/uL (4.3-11.0)
[2020-12-20 22:10] LABS: CALCIUM, SERUM 8.3 mg/dL (8.5-10.1); CREATININE 0.7 mg/dL (0.6-1.3); POTASSIUM 3.4 mmol/L (3.5-5.1)
[2020-12-20 22:16] LABS: BILIRUBIN,DIRECT 0.1 mg/dL (0.0-0.2); BILIRUBIN,TOTAL 0.3 mg/dL (0.2-1.0); TOTAL PROTEIN, SERUM 7.4 g/dL (6.4-8.2)
[2020-12-20] MEDS ORDERED: METOCLOPRAMIDE HCL 10 MG/2 ML VIAL ONE (22:50)
[2020-12-20] MEDS ORDERED: HYDROMORPHONE 1 MG/1 ML DISP.SYRIN ONE (22:50)
[2020-12-20] MEDS ORDERED: diphenhydrAMINE HCL 50 MG/ML VIAL ONE (22:50)
[2020-12-20] MEDS ORDERED: HYDROMORPHONE 1 MG/1 ML DISP.SYRIN IV ONE (23:00)
[2020-12-20] MEDS ORDERED: diphenhydrAMINE HCL 50 MG/ML VIAL IV ONE (23:00)
[2020-12-20] MEDS ORDERED: METOCLOPRAMIDE HCL 10 MG/2 ML VIAL IV ONE (23:00)
[2020-12-20] MEDS ORDERED: MORPHINE SULFATE INJ 4 MG/ML DISP.SYRIN ONE (23:03)
--- NOTE | 2020-12-20 23:06 | NUR ---
PT AMBULATED TO THE RESTROOM
[2020-12-20] MEDS ORDERED: MORPHINE SULFATE INJ 2 MG/ML DISP.SYRIN IV ONE (23:30)
[2020-12-21 03:45] VITALS: BP 116/73
--- NOTE | 2020-12-21 03:45 | NUR ---
PT RESTING COMFORTABLY. VSS.
--- NOTE | 2020-12-21 04:22 | NUR ---
PT ACCEPTED TO [facility] BY DR JOHNSON. ROOM 0834. # FOR REPORT [phone]
--- NOTE | 2020-12-21 04:25 | NUR ---
[facility] ETA FOR BLS TRANSPO TO [facility] IN ONE HOUR
--- NOTE | 2020-12-21 04:33 | NUR ---
REPORT GIVEN TO SAÚL AT [facility]
--- NOTE | 2020-12-21 05:35 | NUR ---
[facility] AMBULANCE AT BED SIDE TO DIRECTOR OF OPERATIONS FOR THERAPY THE PT. REPORT GIVEN
== END 2020-12-21 05:44 | disposition short-term general hospital (02) ==
LOC: ER 20:41
DX: K86.1 Other chronic pancreatitis (principal); R11.2 Nausea with vomiting, unspecified; Z88.6 Allergy status to analgesic agent; Z91.018 Allergy to other foods; Z20.822 Contact with and (suspected) exposure to COVID-19; G89.29 Other chronic pain; M54.9 Dorsalgia, unspecified; Z87.440 Personal history of urinary (tract) infections
CPT/HCPCS: 36415; 76700; 80048; 80076; 83690; 85025; 87426; 96361; 96374; 96375; 99285; C9803; J1170; J1200; J2270; J2405; J2765

== ENCOUNTER 2021-02-21 12:40 | Emergency (ER) | payer OTHER ==
[~2021-02-21] VITALS: Ht 165.1 cm; Wt 54.4 kg
[2021-02-21 13:07] VITALS: BP 121/61
--- NOTE | 2021-02-21 13:10 | NUR ---
BIBS FOR C/O L SHOULDER PAIN/L UPPER BACK PAIN 08/20 X 4 DAYS. WILL CONTINUE TO MONITOR THE PATIENT.
[2021-02-21] MEDS ORDERED: ACETAMINOPHEN 325 MG TABLET PO ONE (14:30)
[2021-02-21] MEDS ORDERED: ACETAMINOPHEN 325 MG TABLET ONE (14:42)
--- NOTE | 2021-02-21 15:10 | NUR ---
PT SEEN BY BONITA AMEZQUITA
[2021-02-21] MEDS ORDERED: METH4TAB3 PO ×2 (15:29→15:45)
--- NOTE | 2021-02-21 15:49 | NUR ---
Patient discharged to home in stable condition. Written and verbal after care instructions given. Patient verbalizes understanding of instruction.
== END 2021-02-21 15:49 | disposition home or self-care (01) ==
LOC: ER 12:44
DX: M25.512 Pain in left shoulder (principal); G89.29 Other chronic pain; Z88.6 Allergy status to analgesic agent; Z91.018 Allergy to other foods; Z79.899 Other long term (current) drug therapy
CPT/HCPCS: 73030-TC

== ENCOUNTER 2021-10-24 12:15 | Emergency (ER) | payer OTHER ==
[~2021-10-24] VITALS: Ht 162.6 cm; Wt 54.0 kg
[~2021-10-24 12:15] MED LIST changes: +METH4TAB3 PO
--- NOTE | 2021-10-24 12:25 | NUR ---
AT [facility] SIDE
--- NOTE | 2021-10-24 12:27 | NUR ---
BIBS C/O "Abdominal Pain/nausea/vomiting/diarrhea started saturday- worse now". AMBULATORY, PLACED ON BED, AAOX4, IN PAIN 09/20 PS.
--- NOTE | 2021-10-24 12:40 | NUR ---
URINE SAMPLE SENT TO LAB
--- NOTE | 2021-10-24 12:45 | NUR ---
BLOOD DRAWN AND SENT TO LAB
[2021-10-24 12:55] LABS: BASOPHILS % (AUTO) 0.4 % (0.0-2.0); EOSINOPHILS % (AUTO) 3.1 % (0.0-6.0); HEMATOCRIT 39 % (33-45); HEMOGLOBIN 12.4 g/dL (11.5-14.8); LYMPHOCYTES # (AUTO) 1.7 K/uL (0.8-4.8); MEAN CORPUSCULAR HGB CONC 32 g/dl (31.0-36.0); MEAN CORPUSCULAR VOLUME 86 fL (82-100); MONOCYTES # (AUTO) 0.6 K/uL (0.1-1.30); MONOCYTES % (AUTO) 7.8 % (2.0-12.0); NEUTROPHILS # (AUTO) 4.8 K/uL (1.8-8.9); NEUTROPHILS % (AUTO) 65.7 % (43.0-81.0); PLATELET COUNT (AUTO) 288 K/uL (150-450); RED BLOOD CELL COUNT(AUTO) 4.47 MIL/uL (4.0-5.2); WHITE BLOOD COUNT (AUTO) 7.3 K/uL (4.3-11.0)
[2021-10-24 13:42] LABS: ALBUMIN 3.9 g/dL (3.4-5.0); BILIRUBIN,DIRECT 0.1 mg/dL (0.0-0.2); BILIRUBIN,TOTAL 0.3 mg/dL (0.2-1.0); CALCIUM, SERUM 8.8 mg/dL (8.5-10.1); CREATININE 0.6 mg/dL (0.6-1.3); TOTAL PROTEIN, SERUM 7.2 g/dL (6.4-8.2)
[2021-10-24 14:00] LABS: BILIRUBIN,URINE NEGATIVE (NEGATIVE); COLOR,URINE YELLOW (YELLOW); LEUKOCYTE ESTERASE ,URINE NEGATIVE (NEGATIVE); NITRITE, URINE NEGATIVE (NEGATIVE); PH,URINE 6.5 (5.0-8.0); PROTEIN,URINE NEGATIVE (NEGATIVE); UGLUCOSE NEGATIVE (NEGATIVE); UROBILINOGEN,URINE 0.2 EU/dL (0.2)
[2021-10-24] MEDS ORDERED: HYDROCODONE/APAP 5/325MG TABLET PO ONE (14:00)
[2021-10-24] MEDS ORDERED: LIDOCAINE VISCOUS 2% UD 15 ML UDC MM ONE (14:00)
[2021-10-24] MEDS ORDERED: MAG HYDROX/AL HYDROX/SIMETH 30 ML UDC PO ONE (14:00)
[2021-10-24] MEDS ORDERED: ONDANSETRON 4 MG TAB.RAPDIS SL ONE (14:00)
[2021-10-24] MEDS ORDERED: CIPR500T5 PO (14:11)
[2021-10-24] MEDS ORDERED: HYDR-4209 PO (14:11)
[2021-10-24] MEDS ORDERED: ONDA4TAB11 PO (14:11)
[2021-10-24] MEDS ORDERED: MAG HYDROX/AL HYDROX/SIMETH 30 ML UDC ONE (14:16)
[2021-10-24] MEDS ORDERED: LIDOCAINE VISCOUS 2% UD 15 ML UDC ONE (14:17)
[2021-10-24] MEDS ORDERED: HYDROCODONE/APAP 5/325MG TABLET ONE (14:17)
[2021-10-24] MEDS ORDERED: ONDANSETRON 4 MG TAB.RAPDIS ONE (14:18)
[2021-10-24 14:54] VITALS: BP 112/73
== END 2021-10-24 14:50 | disposition home or self-care (01) ==
LOC: ER 12:18
DX: R10.9 Unspecified abdominal pain (principal); K52.9 Noninfective gastroenteritis and colitis, unspecified; R11.2 Nausea with vomiting, unspecified; G89.29 Other chronic pain; Z87.440 Personal history of urinary (tract) infections; Z91.018 Allergy to other foods; Z88.8 Allergy status to other drugs, medicaments and biological substances; Z79.899 Other long term (current) drug therapy
CPT/HCPCS: 99284; 85025; 80048; 83690; 80076; 84703; 81003; 36415; Q0162

== ENCOUNTER 2021-12-07 19:08 | Emergency (ER) | payer OTHER ==
[~2021-12-07] VITALS: Ht 162.6 cm; Wt 53.1 kg
[~2021-12-07 19:08] MED LIST changes: +CIPR500T5 PO; +HYDR-4209 PO; +ONDA4TAB11 PO
--- NOTE | 2021-12-07 19:13 | NUR ---
JESUS RA88 From Home "Right eye pain/change in vision. Hx of retinal problem. PT A/OX4. TOLERATING R/A WELL WITH NO RESP DISTRESS. SAFETY MEASURES IN PLACE.
--- NOTE | 2021-12-07 20:16 | NUR ---
ATTEMPTED TO PAGED DR MICAH RODRIGUES [phone]. UNABLE TO CONTACT ECOLOGICAL ECONOMIST OPHTALMOLOGIST.
[2021-12-07] MEDS ORDERED: ACETAMINOPHEN 325 MG TABLET PO ONE (20:30)
[2021-12-07] MEDS ORDERED: ACETAMINOPHEN ES 500 MG TABLET ONE (20:33)
--- NOTE | 2021-12-07 20:45 | NUR ---
COVID ANTIGEN SWAB COLLECTED AND SENT TO LAB
--- NOTE | 2021-12-07 20:47 | NUR ---
CALLED JEFFERY SPOKE TO CHRISSY STATES AT [facility]
--- NOTE | 2021-12-07 21:47 | NUR ---
ROBINSON AT [facility] TRANSFER CENTER, [facility] ED STAT, TO TRY OTHER TRANSFER CETNER AND CALLED HER BACK AT [phone]
--- NOTE | 2021-12-07 23:56 | NUR ---
Patient does not wish to proceed with medical care recommended by Dr. Jd KRISHNAN. Patient given information related to possible complications, up to and including , which could occur as a result of leaving the hospital at this time. Patient verbalizes understanding of risks involved due to leaving against medical advice. Patient has signed AMA form.
[2021-12-08 03:07] VITALS: BP 121/68
== END 2021-12-08 03:08 | disposition left against medical advice (07) ==
LOC: ER 19:11
DX: H54.61 Unqualified visual loss, right eye, normal vision left eye (principal); I48.91 Unspecified atrial fibrillation; Z87.440 Personal history of urinary (tract) infections; Z20.822 Contact with and (suspected) exposure to COVID-19; G89.29 Other chronic pain; M54.9 Dorsalgia, unspecified; Z88.6 Allergy status to analgesic agent; Z91.018 Allergy to other foods; Z86.69 Personal history of other diseases of the nervous system and sense organs; Z53.29 Procedure and treatment not carried out because of patient's decision for other reasons
CPT/HCPCS: 99284; 87426; 93005; C9803

== ENCOUNTER 2024-05-14 19:37 | Emergency (ER) | payer OTHER ==
[~2024-05-14] VITALS: Ht 160 cm; Wt 63.5 kg
[2024-05-14 23:33] LABS: APPEARANCE,URINE CLEAR (CLEAR); BILIRUBIN,URINE NEGATIVE (NEGATIVE); BLOOD, URINE NEGATIVE Ery/uL (NEGATIVE); COLOR,URINE YELLOW (YELLOW); KETONES,URINE 1+ mg/dL (NEGATIVE); LEUKOCYTE ESTERASE ,URINE NEGATIVE (NEGATIVE); NITRITE, URINE NEGATIVE (NEGATIVE); PROTEIN,URINE NEGATIVE (NEGATIVE); UGLUCOSE NEGATIVE (NEGATIVE); UROBILINOGEN,URINE 0.2 EU/dL (0.2)
[2024-05-14] MEDS: IV NS 0.9% 1,000 ML BAG IV ONE (23:45)
[2024-05-14 23:56] LABS: BASOPHILS % (AUTO) 0.4 % (0.0-2.0); EOSINOPHILS # (AUTO) 0.2 K/uL (0.0-0.7); EOSINOPHILS % (AUTO) 3.2 % (0.0-6.0); HEMATOCRIT 39 % (33-45); HEMOGLOBIN 12.7 g/dL (11.5-14.8); LYMPHOCYTES # (AUTO) 2.6 K/uL (0.8-4.8); LYMPHOCYTES % (AUTO) 34.9 % (20.0-44.0); MEAN CORPUSCULAR HEMOGLOBIN 27 PG (26.0-33.0); MEAN CORPUSCULAR HGB CONC 33 g/dl (31.0-36.0); MEAN CORPUSCULAR VOLUME 84 fL (82-100); MONOCYTES # (AUTO) 0.6 K/uL (0.1-1.30); MONOCYTES % (AUTO) 7.3 % (2.0-12.0); NEUTROPHILS # (AUTO) 4.1 K/uL (1.8-8.9); NEUTROPHILS % (AUTO) 54.2 % (43.0-81.0); PLATELET COUNT (AUTO) 329 K/uL (150-450); RED BLOOD CELL COUNT(AUTO) 4.63 MIL/uL (4.0-5.2); RED CELL DISTRIBUTION WIDTH 13.8 % (11.5-15.0); WHITE BLOOD COUNT (AUTO) 7.6 K/uL (4.3-11.0)
[2024-05-14 23:57] LABS: ADD URINE CULTURE NO; BACTERIA,URINE Few /HPF (None Seen); RBC,URINE 0-2 /HPF (0-2); SQUAMOUS EPITHELIAL CELL,UR Moderate /HPF (None Seen)
[2024-05-15 00:04] LABS: CALCIUM, SERUM 9.1 mg/dL (8.5-10.1); CREATININE 0.6 mg/dL (0.6-1.3); POTASSIUM 3.5 mmol/L (3.5-5.1)
[2024-05-15] MEDS ORDERED: SULF1TAB48 PO (00:20)
[2024-05-15] MEDS ORDERED: PHEN-704 PO (00:20)
[2024-05-15 00:52] VITALS: BP 135/82; TEMP 98.6; O2SAT 100
== END 2024-05-15 00:53 | disposition home or self-care (01) ==
LOC: ER 19:59
DX: N12 Tubulo-interstitial nephritis, not specified as acute or chronic (principal); G89.29 Other chronic pain; Z87.440 Personal history of urinary (tract) infections; Z88.6 Allergy status to analgesic agent; Z79.899 Other long term (current) drug therapy
CPT/HCPCS: 99283; 96360; 85025; 80048; 81001; 36415; J7030